=== PATIENT | female | born 1980 | race Caucasian/White ===

== ENCOUNTER → 2016-09-08 | Outpatient (CLI) | payer MEDICAID ==
[~2016-09-08] MED LIST: ACCUNEB SOL3 ML/NEB INH; AEROECLIPSE NEB1 DEV; AZO STANDARD97.5 MG PO; CELEXA40 MG PO; CIPROFLOXACIN500 MG PO; CITALOPRAM HYDR20 MG PO; CLARITIN 10MG T10 MG PO; CLONAZEPAM 1MG T1 MG PO; CRYSELLE 30 MCG1 TAB PO; DILAUDID4 MG PO; DOXYCYCLINE HY100 M4 PO; DOXYCYLINE50 MG PO; ETODOLAC400 MG PO; FAMVIR500 MG PO; FIRST-PROGESTE200 MG MR; HYDROCODONE-APA1 TA1 PO; HYDROMORPHONE 44 MG PO; IMITREX100 MG PO; IPRATROPIUM 2.2.5 ML INH; IRON TABLETS325 MG PO; KLONOPIN0.5 M1 PO; LEVAQUIN500 MG PO; PERCOCET 325 MG1 TA4 PO; PREDNISONE 20MG20 MG PO; PRENATAL PLUS1 TA1 PO; TAMIFLU 75MG CA75 MG PO; TESSALON PERLE100 MG PO; TOPAMAX100 MG PO; TOPAMAX200 MG PO; ZITHROMAX Z PA250 MG PO; ZOFRAN ODT4 MG PO; ZYRTEC10 M2 PO
--- NOTE | 2016-09-08 15:07 | RADIOLOGY REPORT PS360 ---
ANKLE-LT-3 VIEWS HISTORY: ACUTE LT FOOT/ANKLE PAIN ORDERING PHYSICIAN: NITHIN TSANG APRN PATIENT AGE: 35 years COMPARISON: None FINDINGS: No fracture or dislocation. No lytic or blastic change. There is normal mineralization.. The joint spaces are well-preserved. No significant degenerative/arthritic changes. No erosive changes evident. IMPRESSION: Negative ankle, no acute finding
--- NOTE | 2016-09-08 15:10 | RADIOLOGY REPORT PS360 ---
FOOT-LT-3 VIEWS HISTORY: ACUTE LT FOOT/ANKLE PAIN ORDERING PHYSICIAN: NITHIN TSANG APRN PATIENT AGE: 35 years COMPARISON: None FINDINGS: No fracture or dislocation. No lytic or blastic change. There is normal mineralization.. The joint spaces are well-preserved. No significant degenerative/arthritic changes. No erosive changes evident. There is a small calcaneal spur without erosive change nonspecific IMPRESSION: No acute finding. Small calcaneal spur
== END ==
LOC: RAD 12:32
DX: M25.572 Pain in left ankle and joints of left foot (principal); M79.672 Pain in left foot

== ENCOUNTER → 2017-05-02 | Outpatient (CLI) | payer MEDICAID ==
[~2017-05-02] MED LIST changes: +DANAZOL PO; +NAPROSYN 500MG500 MG PO
[2017-05-02 13:25] LABS: CORONAVIRUS 229E NOT DETECTED (NOT DETECTE); CORONAVIRUS HKU 1 NOT DETECTED (NOT DETECTE); CORONAVIRUS NL63 NOT DETECTED (NOT DETECTE); CORONAVIRUS OC43 NOT DETECTED (NOT DETECTE); RHINOVIRUS/ENTEROVIRUS NOT DETECTED (NOT DETECTE)
[2017-05-02 13:40] LABS: LYMPH # 2.1 K/mm3 (0.7-4.5); LYMPH % 15.5 % (10-50.0)
[2017-05-02 14:08] LABS: HEMOGLOBIN 15.4 g/dL (12.2-16.2)
[2017-05-02 18:52] LABS: BUN 12 mg/dL (7-18)
[2017-05-02 19:01] LABS: GFR (ESTIMATED) 82 ML/MIN (59-)
== END ==
LOC: LAB 13:22
PROVIDERS: Nurse Practitioner Family
DX: R06.89 Other abnormalities of breathing (principal); R06.00 Dyspnea, unspecified; J22 Unspecified acute lower respiratory infection